=== PATIENT | male | born 1995 | race Caucasian/White ===

== ENCOUNTER 2020-08-21 11:44 | Emergency (ER) | payer SELFPAY ==
[~2020-08-21] VITALS: Ht 175.3 cm; Wt 93.2 kg
[2020-08-21 11:46] VITALS: BP 106/61
--- NOTE | 2020-08-21 15:19 | NUR ---
PT SEEN AND DC'D BY PROVIDER
== END 2020-08-21 15:20 | disposition home or self-care (01) ==
LOC: ER 11:45
DX: Z02.89 Encounter for other administrative examinations (principal); F41.0 Panic disorder [episodic paroxysmal anxiety]
CPT/HCPCS: 93005; 99283